=== PATIENT | female | born 1965 | race Caucasian/White ===

== ENCOUNTER → 2017-02-04 | Day surgery (SDC) | payer OTHER ==
[~2017-02-04] MED LIST: NO MEDICATIONS
--- NOTE | ~2017-02-04 | OR ---
Unit #: [id number] #: [id number] Patient: JOLYNN STINSON [id number] [address] [address] [id number] O MR#: [id number] NAME: JOLYNN STINSON ROOM: Date of Procedure: 02/04/2017 Admission Date: 02/04/2017 Surgeon: Lobito Klein M.D. : 1965 Attending Physician: Lobito Klein M.D. Primary Care Physician: Jason Mg M.D. OPERATIVE REPORT PRIMARY CARE PHYSICIAN Jason Mg M.D. PREOPERATIVE DIAGNOSIS Positive Cologuard test. POSTOPERATIVE DIAGNOSIS Normal colon and rectum. PROCEDURE PERFORMED Colonoscopy to cecum ANESTHESIA Monitored anesthesia. INDICATIONS FOR PROCEDURE A 51-year-old female, who was sent to the office after her primary care physician did Cologuard test in the office that was positive. The patient was very frightened and we have planned a colonoscopy. DESCRIPTION OF PROCEDURE The patient was admitted to [facility], positively identified, transported to the endoscopy unit. After appropriate monitoring and positioning, she was sedated by the anesthesiologist. On rectal examination, there was no local anorectal pathology and digital examination was normal. Colonoscope was passed through the anal verge and throughout the extent of the colon to the cecum. The appendiceal orifice and ileocecal valve were photodocumented. On careful antegrade and retrograde visualization, the entire colon was normal. There was no pathology throughout and in the rectal vault, there was no internal hemorrhoidal disease. The patient tolerated the procedure well and transported to recovery in stable condition. Findings were discussed with her family. At this time, we would recommend a followup screening colonoscopy in 10 years if she remains otherwise asymptomatic in the interim. Dictated by... Haley Riley/hugo Unit #: [id number] #: [id number] Patient: JOLYNN STINSON TD: 02/05/2017 01:34 JOB #: [id number] OPERATIVE REPORT Page 1 of 1 X Lobito Klein MD PROCEDURE OPERATIVE NOTE
== END | disposition home or self-care (01) ==
LOC: COPS 11:14
DX: R93.3 Abnormal findings on diagnostic imaging of other parts of digestive tract (principal); R10.30 Lower abdominal pain, unspecified; J45.909 Unspecified asthma, uncomplicated; E78.5 Hyperlipidemia, unspecified; M19.072 Primary osteoarthritis, left ankle and foot; F41.9 Anxiety disorder, unspecified; Z87.891 Personal history of nicotine dependence; Z90.49 Acquired absence of other specified parts of digestive tract; Z98.890 Other specified postprocedural states

== ENCOUNTER → 2017-04-09 | Outpatient (CLI) | payer OTHER ==
--- NOTE | ~2017-04-09 | US37 ---
[facility] A Service of [facility] & [facility] RADIOLOGY TEXT RESULTS PATIENT: JOLYNN STINSON LOCATION: CNIV : 63 UNIT #: [id number] AGE: [address]: Tamy Padilla MD SEX: F ORDER DR: [id number] [facility] [address] [place], [place] [address] [id number] O MR#: [id number] Acc #: [id number] NAME: JOLYNN STINSON : 1965 SEX: F STUDY DATE/TIME: 04/09/2017 13:55 UNIT: CNIV ROOM: STUDY DESCRIPTION: US Carotid W/Doppler Bilateral Attending Physician: Tamy Padilla M.D. Referring Physician: Tamy Padilla M.D. Ordering Physician: Tamy Padilla M.D. Primary Care Physician: Jason Mg M.D. MEDICAL IMAGING REPORT This report is preliminary unless electronic signature is present EXAM Carotid duplex scan, 04/09/2017. HISTORY Syncope. FINDINGS The right common carotid artery has no plaque. There is minimal plaque in the right internal and external carotid arteries. Peak systolic velocity in the distal right internal carotid artery is 110 cm/second with an end-diastolic velocity of 43 cm/second. The ICA/CCA ratio on the right is 1.01. Peak systolic velocity in the right external carotid artery is 104 cm/second. The right vertebral artery is patent with antegrade flow. The left common carotid artery has no plaque. The left internal and external carotid arteries are patent with minimal plaque. Peak systolic velocity in the proximal left internal carotid artery is 95 cm/second with an end-diastolic velocity of 40 cm/second. The ICA/CCA ratio on the left is 0.79. Peak systolic velocity in the left external carotid artery is 104 cm/second. The left vertebral artery is patent with antegrade flow. IMPRESSION Minimal plaque and no significant stenosis (less than 50%) in the internal and external carotid arteries bilaterally. Patent vertebral arteries bilaterally with antegrade flow. Dictated by... Evan Shrestha M.D. THIS IS AN ELECTRONICALLY VERIFIED REPORT Evan Shrestha M.D. at 04/12/2017 10:29 AM SBS/bd [facility] A Service of [facility] RADIOLOGY TEXT RESULTS PATIENT: JOLYNN STINSON LOCATION: [facility] : 63 UNIT #: [id number] AGE: [address]: Tamy Padilla MD SEX: F ORDER DR: TD: 04/10/2017 07:39 JOB #: [id number] MEDICAL IMAGING REPORT Page 1 of 1 COPY
== END | disposition home or self-care (01) ==
LOC: CNIV 04-02 15:30
DX: R55 Syncope and collapse (principal); I65.23 Occlusion and stenosis of bilateral carotid arteries
CPT/HCPCS: 93880